=== PATIENT | female | born 1945 | race Two or more races ===

== ENCOUNTER 2018-10-30 08:49 | Outpatient (CLI) | payer OTHER ==
[~2018-10-30] VITALS: Ht 177.8 cm; Wt 78.0 kg
== END 2018-10-30 09:10 | disposition home or self-care (01) ==
LOC: OFIC 805 08:49
DX: M26.69 Other specified disorders of temporomandibular joint (principal); H61.21 Impacted cerumen, right ear

== ENCOUNTER 2019-01-01 08:49 | Outpatient (CLI) | payer OTHER ==
[~2019-01-01] VITALS: Ht 152.4 cm; Wt 79.4 kg
== END 2019-01-01 09:15 | disposition home or self-care (01) ==
LOC: OFIC 805 08:49
DX: M26.69 Other specified disorders of temporomandibular joint (principal); H92.10 Otorrhea, unspecified ear

== ENCOUNTER 2019-01-01 11:06 | Outpatient (CLI) | payer OTHER | END 2019-01-01 11:10 | disposition home or self-care (01) | LOC: TOM 11:06 | DX: M26.609 Unspecified temporomandibular joint disorder, unspecified side (principal) ==

== ENCOUNTER 2019-02-18 10:34 | Outpatient (CLI) | payer OTHER ==
[~2019-02-18] VITALS: Ht 152.4 cm; Wt 79.4 kg
[2019-02-18] MEDS ORDERED: FLONASE16 GM NASAL (12:29)
== END 2019-02-18 13:45 | disposition home or self-care (01) ==
LOC: OFIC 805 10:34
DX: G50.1 Atypical facial pain (principal); J31.0 Chronic rhinitis; J34.2 Deviated nasal septum; H92.01 Otalgia, right ear

== ENCOUNTER → 2019-03-25 | Outpatient (CLI) | payer OTHER ==
[~2019-03-25] VITALS: Ht 152.4 cm; Wt 77.1 kg
[~2019-03-25] MED LIST: FLONASE16 GM NASAL
== END | disposition home or self-care (01) ==
LOC: OFIC 805 08:04
DX: J31.0 Chronic rhinitis (principal); J34.2 Deviated nasal septum; H92.01 Otalgia, right ear; M26.69 Other specified disorders of temporomandibular joint

== ENCOUNTER → 2019-06-09 | Outpatient (CLI) | payer OTHER | END | disposition home or self-care (01) | LOC: MRI 08:39 | DX: G50.0 Trigeminal neuralgia (principal); R41.3 Other amnesia | CPT/HCPCS: 70553; A9575 ==

== ENCOUNTER 2021-05-30 10:08 | Outpatient (CLI) | payer OTHER | END 2021-05-30 10:15 | disposition home or self-care (01) | LOC: MAMO-SONO 10:08 | PROVIDERS: ATTEND Surgery | DX: N60.11 Diffuse cystic mastopathy of right breast (principal); N60.12 Diffuse cystic mastopathy of left breast; Z12.31 Encounter for screening mammogram for malignant neoplasm of breast ==

== ENCOUNTER 2021-09-11 08:11 | Outpatient (CLI) | payer OTHER | END 2021-09-11 08:22 | disposition home or self-care (01) | LOC: MRI 08:11 | PROVIDERS: ATTEND Neuromusculoskeletal Medicine & OMM | DX: R41.3 Other amnesia (principal); D49.6 Neoplasm of unspecified behavior of brain | CPT/HCPCS: 70553; Q9965 ==

== ENCOUNTER 2021-10-06 07:26 | Outpatient (CLI) | payer OTHER | END 2021-10-06 07:32 | disposition home or self-care (01) | LOC: LAB 07:26 | DX: U07.1 COVID-19 (principal); B34.1 Enterovirus infection, unspecified ==

== ENCOUNTER 2021-12-19 13:15 | Emergency (ER) | payer OTHER ==
[~2021-12-19] VITALS: Ht 177.8 cm; Wt 72.6 kg
== END 2021-12-19 19:39 | disposition home or self-care (01) ==
LOC: ER 13:15
DX: R07.9 Chest pain, unspecified (principal); A49.3 Mycoplasma infection, unspecified site; I10 Essential (primary) hypertension

== ENCOUNTER 2022-01-04 09:45 | Outpatient (CLI) | payer OTHER | END 2022-01-04 09:47 | disposition home or self-care (01) | LOC: SONOGRAMA 09:45 | PROVIDERS: ATTEND Internal Medicine | DX: N18.31 Chronic kidney disease, stage 3a (principal) ==